=== PATIENT | male | born 1990 ===

== ENCOUNTER 2017-07-18 08:52 | Emergency (ER) | payer OTHER, MEDICAID ==
[2017-07-18 08:54] VITALS: BP 135/84; PULSE 84; RESP 16; TEMP 98; O2SAT 100
[2017-07-18 08:55] VITALS: BMI 26.5
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
== END 2017-07-18 11:33 | disposition home or self-care (01) ==
LOC: H.ER 08:52
DX: S09.90XA Unspecified injury of head, initial encounter (principal); S50.12XA Contusion of left forearm, initial encounter; V43.52XA Car driver injured in collision with other type car in traffic accident, initial encounter